=== PATIENT | female | born 1995 | race Caucasian/White ===

== ENCOUNTER 2017-01-27 04:02 | Inpatient (IN) ==
[2017-01-27] MEDS ORDERED: LR 1,000 ML IV SCH ×2 (04:45→06:00)
[2017-01-27] MEDS ORDERED: CARBOPROST 250 MCG/ML INJECTION IM PRN (08:35)
[2017-01-27] MEDS ORDERED: METHYLERGONOVINE 0.2 MG/ML INJECTION IM PRN (08:35)
[2017-01-27] MEDS ORDERED: ACETAMINOPHEN 500 MG TABLET PO PRN (08:35)
[2017-01-27] MEDS ORDERED: CALCIUM CARBONATE Chewable 500mg TABLET PO PRN (08:35)
[2017-01-27] MEDS ORDERED: LIDOCAINE 1% (10mg/ml) 2mL INJ PF SDV ID PRN (08:35)
[2017-01-27] MEDS ORDERED: MAG-AL + SIM ORAL LIQUID 30ml PO PRN (08:35)
[2017-01-27] MEDS ORDERED: NALOXONE 0.4 MG/ML INJECTION IVP PRN (08:39)
[2017-01-27] MEDS ORDERED: ONDANSETRON 4 MG/2 ML INJECTION IVP PRN (08:39)
[2017-01-27] MEDS ORDERED: DiphenhydrAMINE 50 MG/ML INJECTION IVP PRN (08:39)
[2017-01-27] MEDS ORDERED: ROPIVACAINE 1% 10MG/ML INJ 200 MG, SUFentanil 50 MCG in NS 100 ML EPI PRN (08:39)
--- NOTE | 2017-01-27 08:39 | Anesthesia Preoperative Report ---
Anesthesia Epidural/Spinal Rec - Date and Time Date: 01/27/17 Preoperative Diagnosis: Procedure: Labor Epidural Plan: Epidural - Vital Signs Vital Signs: Temp Pulse Resp BP Pulse Ox 98.3 F 75 20 123/72 99 01/27/17 07:32 01/27/17 07:32 01/27/17 07:32 01/27/17 07:32 01/27/17 07:32 /Para: P:0 Heart Rate: 130 - Medictaions & Allergies Allergies/Adverse Reactions: Allergies Allergy/AdvReac Type Severity Reaction Status Date / Time Penicillins Allergy Unknown Verified 01/27/17 05:26 - Home Medications Home Medications: Home Medications Medication Instructions Recorded Confirmed Type Acetaminophen [Tylenol] 2 tab PO Q4-6HR PRN 01/27/17 01/27/17 History CALCIUM CARBONATE Chewable [Tums] 500 mg PO Q4H PRN 01/27/17 01/27/17 History diphenhydrAMINE HCl [Benadryl] 25 mg PO Q6H PRN 01/27/17 01/27/17 History - Surgical History Musculoskeletal Surgery/Tx: Reports: Other (obese) - Social History Smoking Status: Current every day smoker Packs per day: 1 Pack-years: 4 - Pertinent Findings Lab Data: CBC and BMP 01/27/17 04:50 - Physical Exam Respiratory Exam: lungs clear, bilateral breath sounds equal Cardiovascular Exam: regular rate and rhythm, no murmur - Airway Assessment Mallampati Score: III TMD: 2 Fingerbreadths Neck Extension: good Overall Assessment: may be difficult intubation - ASA ASA Score: 3 - Discussion Discussion: Discussed risks/options/alternatives of anesthesia and questions answered. Patient consents. Nursing pain assessment noted. Attestation Statement: Prior to the delivery of any anesthetic medication, I examined the patient, developed the plan, obtained the patient's consent and discussed the risk and benefits of the procedure with the patient/guardian.
[2017-01-27] MEDS: LR 1,000 ML IV PRN ×3 (13:12→15:33)
[2017-01-27] MEDS ORDERED: D5LR 1,000 ML IV PRN (14:26)
[2017-01-27] MEDS ORDERED: OXYTOCIN DRIP 30 UNIT/500 ML ML IV PRN (14:26)
[2017-01-27] MEDS ORDERED: LIDOCAINE 1.5% W/EPI 1:200,000 30ml SDV PF ONE (21:11)
[2017-01-27] MEDS ORDERED: PHENYLEPHRINE RECTAL SUPPOSITORY PR PRN (22:57)
[2017-01-27] MEDS ORDERED: TETANUS, DIPHTHERIA, a PERTUSSIS (Tdap) 0.5ml INJECTION IM ONE (22:57)
[2017-01-27] MEDS ORDERED: DiphenhydrAMINE 25 MG CAPSULE PO PRN (22:57)
[2017-01-27] MEDS ORDERED: SALINE FLUSH 10ml SYRINGE IVF PRN (22:57)
[2017-01-27] MEDS ORDERED: OXYTOCIN DRIP 30 UNIT/500 ML ML IV SCH (23:00)
[2017-01-27] MEDS: HYDROCODONE/APAP 5mg/325mg TABLET PO PRN (23:10)
[2017-01-27] MEDS: IBUPROFEN 800 MG TABLET PO PRN (23:10)
[2017-01-28] MEDS: HYDROCODONE/APAP 5mg/325mg TABLET PO PRN ×3 (04:33→17:37)
[2017-01-28] MEDS: IBUPROFEN 800 MG TABLET PO PRN ×3 (06:54→20:02)
[2017-01-28] MEDS: DOCUSATE CALCIUM 240 MG CAPSULE PO SCH ×3 (06:54→14:21)
--- NOTE | 2017-01-28 07:59 | OB/GYN Progress Note ---
OB-PP Progress Note - General PPD1 Group B Streptococcal Result: Negative - Subjective Date: 01/28/17 Lochia: Moderate Voiding: voiding Nausea or Vomiting Present: No - Objective Vital Signs: Last Vital Signs Temp 97.6 F 01/28/17 02:46 Pulse 64 01/28/17 02:46 Resp 16 01/28/17 02:46 BP 113/61 01/28/17 02:46 Pulse Ox 99 01/27/17 15:00 Urine Output: good General: alert and oriented Abdomen: non-tender Extremities: non-tender Edema: none Laboratory: 01/27/17 04:50 - Assessment Assessment: (Planning dismissal tomorrow)
--- NOTE | 2017-01-28 08:19 | Labor and Delivery Note ---
DATE OF DELIVERY 01/27/2017 DELIVERY NOTE Inna is a 22-year-old, 2, para 0, at 38 weeks 3 days gestational age who was admitted for labor. She is a patient of Dr. Velez and I took over when the patient was 9 cm. She had an epidural and an IUPC in place. Her Pitocin had been titrated up and down throughout the day based on contraction pattern and heart tone status. When she was complete she started pushing. Baby was initially asynclitic to the left, but the head straightened out to the EVA position with pushing. She pushed for approximately an [id number]. She had a spontaneous vaginal delivery of a viable female infant, Apgars 8/9, weight 4085 g, name "Shavon." The baby was vigorous at delivery, so she was placed on mom's abdomen and the cord clamping was delayed for more than two minutes. The placenta delivered spontaneously. She had a left periurethral laceration that was repaired. Prior to delivery, the patient was having lots of pain in her rectum despite having adequate epidural levels. I placed a pudendal block and she had a good amount of relief from this prior to delivery. KARISSA
--- NOTE | 2017-01-28 10:13 | Anesthesia Postoperative Note ---
- Date and Time Date: 01/28/17 Time: 10:05 - Status Patient Participated in Evaluation: Patient Participated in Person Vital Signs: Temp Pulse Resp BP Pulse Ox 97.6 F 64 16 113/61 99 01/28/17 02:46 01/28/17 02:46 01/28/17 02:46 01/28/17 02:46 01/27/17 15:00 Respiratory Function: Airway Patent, Regular Respirations Cardiovascular Function: Regular Pulse Mental Status: Alert and Oriented Pain Intensity: 0 Hydration: Taking PO Fluids Complications During Recover: None Apparent Post Anesthesia Care Notes: ambulating with out problems, denies headache - Follow-Up Instructions Instructions: Per Surgeon
[2017-01-28] MEDS ORDERED: HYDROCORTISONE 2.5% CREAM 30gm RECTALLY ONE (17:46)
[2017-01-29] MEDS: HYDROCODONE/APAP 5mg/325mg TABLET PO PRN ×3 (01:36→11:20)
[2017-01-29] MEDS: DOCUSATE CALCIUM 240 MG CAPSULE PO SCH ×2 (06:50→11:12)
[2017-01-29] MEDS: IBUPROFEN 800 MG TABLET PO PRN (06:50)
--- NOTE | 2017-01-29 10:53 | Discharge Summary ---
Discharge Plan - Med Rec/Dispo Referrals/Follow Up: Ghazala Velez MD [Physician] - (5-6 weeks) Prescriptions: Continue diphenhydrAMINE HCl [Benadryl] 25 mg PO Q6H PRN PRN Reason: Discomfort Acetaminophen [Tylenol] 2 tab PO Q4-6HR PRN PRN Reason: Discomfort CALCIUM CARBONATE Chewable [Tums] 500 mg PO Q4H PRN PRN Reason: Heartburn - Disposition 01 Discharged Home, Self-Care
--- NOTE | 2017-01-29 11:32 | Progress Note ---
OB PP Progress Note Free Text - Date Date: 01/29/17 - Progress Note Progress Note: doing well vss af dc instructions given [id number]
== END 2017-01-29 11:55 | disposition home or self-care (01) | DRG 775 ==
LOC: OBOBS 04:02 → MC 04:02
PROVIDERS: ADMIT Obstetrics & Gynecology; ATTEND Obstetrics & Gynecology